=== PATIENT | male | born 1965 | race Caucasian/White ===

== ENCOUNTER → 2020-09-24 | Outpatient (CLI) | payer OTHER ==
--- NOTE | 2020-09-24 15:12 | RAD ---
US EXT NON VASC LEFT Clinical Indication: Reason: LUMP ON LEFT SIDE OF FACE / Spl. Instructions: / History: Comparison: None. TECHNIQUE: Real-time ultrasound imaging of the soft tissues of the left neck is performed, imaging of the contralateral side is performed for comparison. Findings: The left parotid gland measures 4.8 x 4.8 x 2.1 cm. No hyperemia of the parotid gland is identified. There is a hypoechoic and anechoic mass deep in the mid to inferior left parotid gland measuring 1.7 x 1.2 x 1.4 cm. Color Doppler interrogation is negative. Given the echogenicity is the mass may be cy stic and solid or complex cystic. For comparison the right parotid gland measures 4.7 x 4.2 x 1.5 cm. IMPRESSION: 1. There is a hypoechoic and anechoic mass in the deep mid to inferior left parotid gland. Different ial considerations are broad and include first branchial cleft cyst, parotid neoplasm, necrotic lymph node, or metastasis. Recommend further evaluation with MR neck with and without contrast. The mass i s likely amenable to ultrasound-guided sampling. Electronically signed by: James Nation MD (09/24/2020 3:10 PM) [facility]
== END ==
LOC: US 13:11
PROVIDERS: ATTEND Nurse Practitioner Adult Health
DX: R22.0 Localized swelling, mass and lump, head (principal); Q18.0 Sinus, fistula and cyst of branchial cleft
CPT/HCPCS: 76881